=== PATIENT | male | born 1935 | race Caucasian/White ===

== ENCOUNTER → 2021-06-04 | Day surgery (SDC) | payer MEDICARE, OTHER ==
[~2021-06-04] MED LIST: AMLODIPINE BESY10 MG PO; ASPIRIN81 MG PO; BASAGLAR K100 UNIT/1 SQ; CYANOCOBAL1000 MCG/1 IM; FERROUS SULFAT325 M2 PO; FISH OIL 500 M1 EAC1 PO; HYDROCHLOROTH12.5 MG PO; LINZESS290 MCG PO; LIPITOR40 MG PO; LOPRESSOR 25 MG25 MG PO; NAMENDA10 MG PO; TRULICITY0.75 MG/0. SQ; TYLENOL325 MG PO; VITAMIN C500 M4 PO; VITAMIN D21250 MCG PO
== END | disposition home or self-care (01) ==
LOC: OR 07:07
DX: D12.2 Benign neoplasm of ascending colon (principal); D12.5 Benign neoplasm of sigmoid colon; D12.3 Benign neoplasm of transverse colon; D12.8 Benign neoplasm of rectum; K64.8 Other hemorrhoids; K59.09 Other constipation; I12.9 Hypertensive chronic kidney disease with stage 1 through stage 4 chronic kidney disease, or unspecified chronic kidney disease; E11.22 Type 2 diabetes mellitus with diabetic chronic kidney disease; N18.30 Chronic kidney disease, stage 3 unspecified; F03.90 Unspecified dementia, unspecified severity, without behavioral disturbance, psychotic disturbance, mood disturbance, and anxiety; E78.5 Hyperlipidemia, unspecified; J44.9 Chronic obstructive pulmonary disease, unspecified; K21.9 Gastro-esophageal reflux disease without esophagitis; D50.9 Iron deficiency anemia, unspecified; K63.89 Other specified diseases of intestine; F41.9 Anxiety disorder, unspecified; E66.8 Other obesity; Z68.36 Body mass index [BMI] 36.0-36.9, adult; Z20.822 Contact with and (suspected) exposure to COVID-19; Z87.891 Personal history of nicotine dependence; Z79.4 Long term (current) use of insulin; Z79.899 Other long term (current) drug therapy
CPT/HCPCS: 82962; J2370; J2704; J7040; U0002